=== PATIENT | female | born 1940 | race Caucasian/White ===

== ENCOUNTER 2021-10-22 14:43 | Emergency (ER) | payer MEDICARE, SELFPAY ==
[2021-10-22 15:22] VITALS: BP 140/71; PULSE 83; RESP 18; TEMP 36.7; O2SAT 97; BMI 21.8
--- NOTE | 2021-10-22 15:27 | CRLHL7_ITS ---
For Patients: As a result of the Century Cures Act, medical imaging exams and procedure reports are released immediately into your electronic medical record. You may view this report before your referring provider. If you have questions, please contact your health care provider. Indication: Left calf swelling and pain Technique: Grayscale, grayscale compression, color Doppler and spectral Doppler sonographic interrogation of the left lower extremity deep venous system was performed as per protocol. The right common femoral vein was also studied. Comparison: There are no prior studies for comparison Findings: There is thrombosis identified involving the proximal and mid gastrocnemius veins of the left calf. These are considered deep veins. The remainder of the deep venous system the left lower extremity from the common femoral vein through the major calf veins appears normal. The right common femoral vein appears normal. Impression: Deep venous thrombosis involving the proximal and mid left gastrocnemius veins. The remainder of the left lower extremity deep venous system appears normal. Dictated by Bobby Chun MD @ 10/22/2021 4:21:52 PM (Electronically Signed)
[2021-10-22 18:03] LABS: Basophils Absolute Auto 0.06 K/uL (0.00-0.30); Basophils Percent Auto 1.3 % (0.0-3.0); Eosinophils Absolute Auto 0.12 K/uL (0.00-0.50); Eosinophils Percent Auto 2.6 % (0.0-7.0); Hematocrit 39.2 % (33.0-51.0); Hemoglobin* 12.7 gm/dL (12.0-16.0); Lymphocytes Absolute Auto 1.33 K/uL (0.90-2.90); Lymphocytes Percent Auto 28.7 % (20-44); Mean Corpuscular HGB Conc 32 gm/dL (32-36); Mean Corpuscular Hemoglobin 31 pg (26-34); Mean Corpuscular Volume 96 fL (80-100); Monocytes Percent Auto 8.8 % (0.0-11.0); Neutrophils Absolute Auto 2.72 K/uL (1.7-7.0); Neutrophils Percent Auto 58.6 % (42.0-72.0); Platelet Count* 235 K/uL (140-440); RDW Coefficient of Variation % 13.6 % (11.5-15.5); Red Blood Count 4.09 m/uL (4.00-5.20); White Blood Count* 4.64 K/uL (4.50-11.00)
[2021-10-22 18:16] LABS: Slide Review Reflex No
[2021-10-22 18:18] LABS: Chloride* 102 mmol/L (96-114)
[2021-10-22 18:19] LABS: Potassium* 3.9 mmol/L (3.6-5.1); Sodium* 137 mmol/L (135-149)
[2021-10-22 18:21] LABS: Creatinine* 0.8 mg/dL (0.5-1.5); Estimated Glomerular Filt Rate 75 ml/min
[2021-10-22 18:22] LABS: Blood Urea Nitrogen* 20 mg/dL (7-30); Calcium* 8.9 mg/dL (8.4-10.6); Carbon Dioxide* 28 mmol/L (20-32); Glucose* 93 mg/dL (60-115)
[2021-10-22 18:24] LABS: INR 0.84 (0.91-1.10); Prothrombin Time 11.9 Seconds
--- NOTE | 2021-10-22 18:53 | ED.GENADULT ---
HPI - General Adult General Chief complaint: Extremity Pain/Injury, Lower Stated complaint: Calf Pain Warm to touch/Swelling Time Seen by Provider: 10/22/21 16:32 History of Present Illness HPI narrative: Pt presents with a 1 day history of pain and swelling in the left leg. Pain and swelling is in the posterior knee with mild extension distally. No difficulty with circulation or range of motion. No cough or shortness of breath. No bruising. No history of clotting disorder. No recent trauma or changes in her activity level. No long car rides. Related Data Home Medications Medication Instructions Recorded Confirmed fluticasone 100 mcg-salmeterol 50 inhalation 10/22/21 mcg/dose blistr powdr for inhalation (Wixela Inhub) Previous Rx's Medication Instructions Recorded rivaroxaban 15 mg (42)-20 mg (9) See Rx Instructions PO .COMPLEX 10/22/21 tablets in a starter pack (Xarelto #51 ea DVT-PE Treatment 30-Day Starter) Allergies Allergy/AdvReac Type Severity Reaction Status Date / Time No Known Drug Allergies Allergy Verified 10/22/21 15:22 Review of Systems Status of ROS: Reports: 10 or more systems reviewed and unremarkable except as noted in History and below [facility] Medical History Cancer Surgical History H/O mastectomy Social History Smoking Status: Never smoker Do you use any of these nicotine containing products: None Second hand tobacco smoke exposure: No How often do you have a drink containing alcohol: never How often do you have six or more drinks on one occasion: Never AUDIT-C Alcohol total score: 0 Non-prescribed substance use: denies use service: No Exam Narrative: Exam Narrative: EXAM GENERAL: Patient appears comfortable and well. EYES: No scleral icterus. THYROID: no thyroid nodules or thyromegaly. LYMPH: No supraclavicular or cervical lymphadenopathy. SKIN: Visible skin seen during exam normal or with benign process only. EXT: No dependent lower extremity pedal edema. Pain and swelling noted the posterior knee on the left no bruising or ecchymoses. HEART: Regular rate and rhythm with no murmurs, rubs, or gallops. LUNGS: Clear to auscultation bilaterally with no crackles or wheezes. ABD: Soft, non tender, non distended. PSYCH: Good eye contact, speech is not pressured. Const: Vital Signs, click to edit/add: Vital Signs - 24 hr 10/22/21 15:22 Temperature 98.1 F Pulse Rate [Right Pulse Oximeter] 83 Respiratory Rate 18 Blood Pressure [Ri ght Upper Arm] 140/71 H Pulse Oximetry 97 Oxygen Delivery Me thod Room Air Course Course Hospital Course: Ultrasound of the left leg shows DVT involving the left mid gastrocneium vein. Reevaluation(s) Reevaluation #1: Labs reassuring. Procoagulant work up pending. Xarelto 15 mg given orally. Vital Signs Vital signs: Initial Vital Signs Temperature 98.1 F 10/22/21 15:22 Temperature Source Temporal Artery Scan 10/22/21 15:22 Pulse Rate 83 10/22/21 15:22 Respiratory Rate 18 10/22/21 15:22 Blood Pressure 140/71 H 10/22/21 15:22 Blood Pressure Mean 94 10/22/21 15:22 Blood Pressure Position Sitting 10/22/21 15:22 Pulse Oximetry 97 10/22/21 15:22 Oxygen Delivery Method 10/22/21 15:22 Vital Signs Temperature 98.1 F 10/22/21 15:22 Pulse Rate 83 10/22/21 15:22 Respiratory Rate 18 10/22/21 15:22 Blood Pressure 140/71 H 10/22/21 15:22 Pulse Oximetry 97 10/22/21 15:22 Oxygen Delivery Method 10/22/21 15:22 Temperature 98.1 F 10/22/21 15:22 Pulse Rate 83 10/22/21 15:22 Respiratory Rate 18 10/22/21 15:22 Blood Pressure 140/71 H 10/22/21 15:22 Pulse Oximetry 97 10/22/21 15:22 Oxygen Delivery Method 10/22/21 15:22 Medical Decision Making MDM Narrative Medical decision making narrative: Pt presents with DVT in L leg. No history of DVT. Pt labs reassuring. Pt started on Xarelto. Procoagulant workup in process. Differential Diagnosis Differential Diagnosis: DVT, Orellana's Cyst, Bleeding, Torn muscle Lab Data Labs: Lab Results 10/22/21 10/22/21 10/22/21 Range/Units 17:52 17:52 17:52 WBC 4.64 (4.50-11.00) K/uL RBC 4.09 (4.00-5.20) m/uL Hgb 12.7 (12.0-16.0) gm/dL Hct 39.2 (33.0-51.0) % MCV 96 (80-100) fL MCH 31 (26-34) pg MCHC 32 (32-36) gm/dL RDW Coeff of Tyree 13.6 (11.5-15.5) % Plt Count 235 (140-440) K/uL Neut % (Auto) 58.6 (42.0-72.0) % Lymph % (Auto) 28.7 (20-44) % [place] % (Auto) 8.8 (0.0-11.0) % Eos % (Auto) 2.6 (0.0-7.0) % Baso % (Auto) 1.3 (0.0-3.0) % Neut # (Auto) 2.72 (1.7-7.0) K/uL Lymph # (Auto) 1.33 (0.90-2.90) K/uL [place] # (Auto) 0.40 (0.00-0.90) K/UL Eos # (Auto) 0.12 (0.00-0.50) K/uL Baso # (Auto) 0.06 (0.00-0.30) K/uL Abs Immat Gran (auto) 0.00 (0.00-0.30) K/uL INR 0.84 L (0.91-1.10) Sodium 137 (135-149) mmol/L Potassium 3.9 (3.6-5.1) mmol/L Chloride 102 (96-114) mmol/L Carbon Dioxide 28 (20-32) mmol/L BUN 20 (7-30) mg/dL Creatinine 0.8 (0.5-1.5) mg/dL Estimated Creat Clear 42.70 Estimated GFR 75 ml/min Glucose 93 (60-115) mg/dL Calcium 8.9 (8.4-10.6) mg/dL Discharge Plan Discharge Clinical Impression: DVT (deep venous thrombosis) Patient Disposition: Home, Self-Care Condition: Stable Instructions: Deep Vein Thrombosis (ED) Additional Instructions: Xarelto 15 mg twice daily for 21 days then 20 mg daily Follow up with your doctor in the next week Activity Level: No Restrictions Discharge Diet: Regular Prescriptions: New Xarelto DVT-PE Treat 30d Start 15 mg (42)- 20 mg (9) tablets,dose pack See Rx Instructions .ROUTE .COMPLEX Qty: 51 0RF Rx Instructions: take one-15 mg tablet twice daily for 21 days, then one-20 mg tablet once daily; must take with meal/food No Action fluticasone propion-salmeterol [Wixela Inhub] 100-50 mcg/dose blister with device INHALATION Follow Up/Referrals: Arlyn Blanton MD [Primary Care Provider] - Stand Alone Forms: [employer] Payment Info Instructions
[2021-10-22] MEDS: RIVAROXABAN 10 MG TABLET 15 MG PO (19:31)
[2021-10-25 23:46] LABS: Protein C Functional 117 % (83-168); Protein S Functional 79 % (57-131)
[2021-10-27 18:26] LABS: FACV Specimen Whole Blood; Factor V Leiden (F5) Mutation Negative
== END 2021-10-22 20:03 | disposition home or self-care (01) ==
PROVIDERS: Emergency Provider Internal Medicine; PCP Internal Medicine
DX: I82.402 Acute embolism and thrombosis of unspecified deep veins of left lower extremity (principal)
CPT/HCPCS: 36415; 80048; 81241; 85025; 85303; 85306; 85610; 93971; 99283; A9270

== ENCOUNTER 2022-01-06 10:18 | Emergency (ER) | payer MEDICARE, SELFPAY ==
[2022-01-06 10:40] VITALS: BP 117/75; PULSE 95; RESP 18; TEMP 36.9; O2SAT 97; BMI 21.8
--- NOTE | 2022-01-06 11:10 | CRLHL7_ITS ---
For Patients: As a result of the Century Cures Act, medical imaging exams and procedure reports are released immediately into your electronic medical record. You may view this report before your referring provider. If you have questions, please contact your health care provider. INDICATION: Calf pain COMPARISON: None. TECHNIQUE: A compression venous ultrasound exam was performed of the left lower extremity using duran-scale imaging, color Doppler and spectral Doppler analysis. FINDINGS: Sonographic imaging of the left lower extremity demonstrates normal compressibility and color Doppler venous blood flow within the common femoral vein, deep femoral vein, and the proximal greater saphenous vein. Within the thigh, the femoral vein is patent and compressible. At a lower level, the popliteal and posterior tibial veins also show normal compressibility and color Doppler venous blood flow. One of the paired peroneal veins demonstrates absent Doppler flow with hypoechoic clot and noncompressibility. Limited imaging of the contralateral groin demonstrates a normal spectral waveform and color Doppler venous blood flow within the right common femoral vein. IMPRESSION: Positive exam for DVT within the right mid calf involving 1 of the paired peroneal veins. Called to Dr. Ashby 1:04 p.m. 01/06/2022. Dictated by Jeovany Leon MD @ 01/06/2022 1:04:35 PM (Electronically Signed)
--- NOTE | 2022-01-06 11:32 | ED.GENADULT ---
HPI - General Adult General Time Seen by Provider: 11:32 Date Seen: 01/06/22 Chief complaint: Extremity Pain/Injury, Lower Stated complaint: Blood clot right calf Time Seen by Provider: 01/06/22 11:32 Source: patient, RN notes reviewed and old records reviewed Mode of arrival: ambulatory Limitations: no limitations History of Present Illness HPI narrative: Caroline is a very pleasant 81-year-old female with a history of unprovoked left lower extremity DVT in mid October 2021 who comes to the emergency room with right calf tenderness. Patient states that she had been placed on Xarelto after being diagnosed with a blood clot in her left leg. She really had no reason to have this occur. Since that time she has gone off and on the medication. At this time she has not taken the medication for 5 days because she had an episode of nausea and shakiness and felt very cold after dinner while taking the tablet. She is unsure of other dates in which she did not take the medication at this point. On ThursdayJanuary 04 patient had the onset of right calf tenderness. She is here today because she is worried about a blood clot. She denies fever or chills. She does note that she was treated with monoclonal antibodies for COVID 3 weeks ago in [place]. She has no known clotting disorders and she was not worked up for any clotting disorders after the previous blood clot. Patient denies shortness of breath which or chest pain or shortness of breath with exertion. She denies any rapid heart rate. Related Data Home Medications Medication Instructions Recorded Confirmed fluticasone 100 mcg-salmeterol 50 1 inh inhalation DAILY 10/22/21 01/06/22 mcg/dose blistr powdr for inhalation (Wixela Inhub) Previous Rx's Medication Instructions Recorded rivaroxaban 15 mg (42)-20 mg (9) See Rx Instructions PO .COMPLEX 10/22/21 tablets in a starter pack (Xarelto #51 ea DVT-PE Treatment 30-Day Starter) ondansetron HCl 4 mg tablet 4 mg PO TID PRN nausea and 01/06/22 vomiting #10 tabs rivaroxaban 15 mg tablet (Xarelto) 15 mg PO BID 21 days #42 tabs 01/06/22 Allergies Allergy/AdvReac Type Severity Reaction Status Date / Time No Known Drug Allergies Allergy Verified 01/06/22 10:45 Review of Systems Status of ROS: Reports: 10 or more systems reviewed and unremarkable except as noted in History and below Narrative: COVID 3 weeks ago treated with monoclonal antibodies Const: Denies: fever or chills Eyes: Denies: change in vision ENMT: Denies: throat pain or neck pain Cardio: Reports: swelling of feet/ankles (On the right); Denies: chest pain, palpitations, lightheadedness or shortness of breath with exertion Resp: Denies: shortness of breath or cough GI: Denies: abdominal pain or diarrhea : Denies: painful urination Musculo: Denies: neck pain Neuro: Denies: numbness in extremities or weakness in extremities PFSH PFSH Medical History Cancer Surgical History H/O mastectomy Social History Smoking Status: Never smoker Do you use any of these nicotine containing products: None Second hand tobacco smoke exposure: No How often do you have a drink containing alcohol: never How often do you have six or more drinks on one occasion: Never AUDIT-C Alcohol total score: 0 Non-prescribed substance use: denies use service: No Exam Narrative: Exam Narrative: Caroline is alert and oriented. Very pleasant well-spoken woman in no acute distress. Eyes are clear. Oral cavity with moist mucous membranes. Neck is supple. Heart with regular rate and rhythm. No murmurs or rubs are noted. Lungs are clear in all lung martin. Abdomen is soft nontender. Lower extremities show increased size of the right lower calf compared to the left. No tenderness with palpation over the calf but positive Homans sign is noted. Pedal pulses are symmetrical and intact. Const: Vital Signs, click to edit/add: Vital Signs - 24 hr 01/06/22 10:40 Temperature 98.4 F Pulse Rate [Right Pulse Oximeter] 95 Respiratory Rate 18 Blood Pressure [Ri ght Upper Arm] 117/75 Pulse Oximetry 97 Oxygen Delivery Me thod Room Air Course Course Hospital Course: Patient immediately went to ultrasound and she does have a right calf peroneal occlusive thrombus. Consultations Consultation #1: I did attempt to speak to hematology/oncology but they were unavailable today. I spoke with lab about the possibility of a missed for factor 5 in related coagulation tests but we do not have a specific panel. I tested today for factor 5 only. Vital Signs Vital signs: Initial Vital Signs Temperature 98.4 F 01/06/22 10:40 Temperature Source Temporal Artery Scan 01/06/22 10:40 Pulse Rate 95 01/06/22 10:40 Respiratory Rate 18 01/06/22 10:40 Blood Pressure 117/75 01/06/22 10:40 Blood Pressure Mean 89 01/06/22 10:40 Blood Pressure Position Sitting 01/06/22 10:40 Pulse Oximetry 97 01/06/22 10:40 Oxygen Delivery Method 01/06/22 10:40 Vital Signs Temperature 98.4 F 01/06/22 10:40 Pulse Rate 95 01/06/22 10:40 Respiratory Rate 18 01/06/22 10:40 Blood Pressure 117/75 01/06/22 10:40 Pulse Oximetry 97 01/06/22 10:40 Oxygen Delivery Method 01/06/22 10:40 Temperature 98.4 F 01/06/22 10:40 Pulse Rate 95 01/06/22 10:40 Respiratory Rate 18 01/06/22 10:40 Blood Pressure 117/75 01/06/22 10:40 Pulse Oximetry 97 01/06/22 10:40 Oxygen Delivery Method 01/06/22 10:40 Medical Decision Making MDM Narrative Medical decision making narrative: 1. Acute right calf DVT-this is not extend past the knee. Patient does not have shortness of breath, tachycardia, hypoxia to indicate any sort of pulmonary embolism type picture. This most likely stems from a combination of starting/stopping her Xarelto as well as recent infection with COVID which is known to be a pro clotting virus. It has been greater than 5 days since patient has been on her Xarelto and therefore will start on her on a starter pack 15 mg p.o. b.i.d. times 21 days. This was sent to her pharmacy [facility]. She states that in the past she has had some nausea and I have also included Zofran 4 mg ODT p.o. t.i.d. p.r.n. 10. Tablets. Would recommend monitoring stool for any blood and reporting that to her primary MD if it should occur. Dr. Arlyn Blanton of the [facility] is her primary MD. 2. Disposition-patient is discharged home and will restart her Xarelto. I have learned from past records that patient does have a history of breast cancer in 2008. She also has COPD. Would recommend hematology consult, possible recheck as underlying cancer may also be implicated in the spontaneous DVTs that patient has had. Patient is recommended to return to the emergency room with difficulty breathing, blood in stool, vomiting and as needed. Medical Records Medical records reviewed: Yes I reviewed the patient's medical records Lab Data Lab results narrative: Factor 5 test pending Discharge Plan Discharge Clinical Impression: Acute deep vein thrombosis (DVT) of calf muscle vein of right lower extremity Patient Disposition: Home, Self-Care Condition: Unchanged Instructions: Deep Vein Thrombosis Prevention (ED) Additional Instructions: Restart Xarelto today. Continue on Xarelto. Take with food. Zofran is an anti nausea medication and I will also call this in for you if you experience nausea. Discontinue Xarelto if you see blood in your stool. Contact your primary MD for recheck. Follow-up with Dr. Blanton in [place] as scheduled on January 13. Please have her check results of the factor 5 test. She may also want to refer you to hematology for further workup. Return to the emergency room for shortness of breath, chest pain, worsening symptoms and as needed. Prescriptions: New Xarelto 15 mg tablet 15 mg PO BID 21 Days Qty: 42 2RF ondansetron HCl 4 mg tablet 4 mg PO TID PRN (Reason: nausea and vomiting) Qty: 10 0RF No Action fluticasone propion-salmeterol [Wixela Inhub] 100-50 mcg/dose blister with device 1 inh INHALATION DAILY Xarelto DVT-PE Treat 30d Start 15 mg (42)- 20 mg (9) tablets,dose pack See Rx Instructions .ROUTE .COMPLEX Qty: 51 0RF Hold Instructions: feeling nauseated and thought medication caused Rx Instructions: take one-15 mg tablet twice daily for 21 days, then one-20 mg tablet once daily; must take with meal/food Follow Up/Referrals: Arlyn Blanton MD [Primary Care Provider] - Stand Alone Forms: [employer] Info Instructions
[2022-01-27 23:46] LABS: FACV Specimen Whole Blood; Factor V Leiden (F5) Mutation Negative
== END 2022-01-06 13:34 | disposition home or self-care (01) ==
PROVIDERS: Emergency Provider Family Medicine; PCP Internal Medicine
DX: I82.461 Acute embolism and thrombosis of right calf muscular vein (principal); R93.7 Abnormal findings on diagnostic imaging of other parts of musculoskeletal system; Z13.79 Encounter for other screening for genetic and chromosomal anomalies
CPT/HCPCS: 36415; 81241; 93971; 99284

== ENCOUNTER 2022-05-17 01:54 | Emergency (ER) | payer MEDICARE, SELFPAY ==
[2022-05-17 02:12] VITALS: BP 118/63; PULSE 88; RESP 18; TEMP 37; O2SAT 98; BMI 21.0
--- NOTE | 2022-05-17 02:22 | CRLHL7_ITS ---
For Patients: As a result of the Century Cures Act, medical imaging exams and procedure reports are released immediately into your electronic medical record. You may view this report before your referring provider. If you have questions, please contact your health care provider. INDICATION: Left calf pain and swelling TECHNIQUE: Ultrasound venous duplex left lower extremity. Real-time duran-scale (B mode 2D), color Doppler, and spectral Doppler imaging were performed with compression and augmentation. COMPARISON: None FINDINGS: Deep veins: The left common femoral, femoral, popliteal, and visualized calf veins are fully compressible, demonstrate normal color flow, and normal response to mechanical augmentation. The Duplex Doppler waveforms are normal in appearance. Superficial veins: The visualized greater saphenous and superficial veins of the leg and calf are unremarkable. Soft tissue: No masses or cysts are identified. No adenopathy is seen. IMPRESSION: 1. No sonographic evidence of acute deep venous thrombosis seen. Dictated by: Abel Smart MD @ 05/17/2022 03:35:49 (Electronically Signed)
--- NOTE | 2022-05-17 02:23 | ED.GENADULT ---
HPI - General Adult General Chief complaint: Extremity Pain/Injury, Lower Stated complaint: Left Leg Pain Time Seen by Provider: 05/17/22 01:57 History of Present Illness HPI narrative: Patient is an 82-year-old woman who has history of at least 2 previous DVTs who presents with approximately 12 hours of swelling in the left lower extremity. She has been off of Xarelto for several weeks due to anemia. Patient had an EGD done earlier this week in [place] which showed a healed ulcer with no bleeding. Patient has no history of shortness of breath no chest pain no orthopnea no PND a known ecchymoses. The swelling is confined to the left calf. She has had no numbness no tingling no weakness no skin breakdown no erythema. Otherwise she has been in good health with no major concerns. Related Data Home Medications Medication Instructions Recorded Confirmed fluticasone 100 mcg-salmeterol 50 1 inh inhalation DAILY 10/22/21 05/17/22 mcg/dose blistr powdr for inhalation (Wixela Inhub) Previous Rx's Medication Instructions Recorded rivaroxaban 15 mg (42)-20 mg (9) See Rx Instructions PO .COMPLEX 10/22/21 tablets in a starter pack (Xarelto #51 ea DVT-PE Treatment 30-Day Starter) ondansetron HCl 4 mg tablet 4 mg PO TID PRN nausea and 01/06/22 vomiting #10 tabs rivaroxaban 15 mg tablet (Xarelto) 15 mg PO BID 21 days #42 tabs 01/06/22 Allergies Allergy/AdvReac Type Severity Reaction Status Date / Time No Known Drug Allergies Allergy Verified 01/06/22 10:45 Review of Systems Status of ROS: Reports: 10 or more systems reviewed and unremarkable except as noted in History and below [facility] Medical History Cancer ?C80.1 - Malignant (primary) neoplasm, unspecified (ICD-10) Surgical History H/O mastectomy ?Z90.10 - Acquired absence of unspecified breast and nipple (ICD-10) Social History Smoking Status: Former smoker Do you use any of these nicotine containing products: None Second hand tobacco smoke exposure: No How often do you have a drink containing alcohol: never How often do you have six or more drinks on one occasion: Never AUDIT-C Alcohol total score: 0 Non-prescribed substance use: denies use service: No Exam Narrative: Exam Narrative: EXAM GENERAL: Patient appears comfortable and well. EYES: No scleral icterus. LYMPH: No supraclavicular or cervical lymphadenopathy. SKIN: Visible skin seen during exam normal or with benign process only. EXT: No dependent lower extremity pedal edema. Minimal swelling without ecchymosis or erythema noted on the left calf. No other significant findings. HEART: Regular rate and rhythm with no murmurs, rubs, or gallops. LUNGS: Clear to auscultation bilaterally with no crackles or wheezes. ABD: Soft, non tender, non distended. PSYCH: Good eye contact, speech is not pressured. Const: Vital Signs, click to edit/add: Vital Signs - 24 hr 05/17/22 02:12 Temperature 98.6 F Pulse Rate [Pulse Oximeter] 88 Respiratory Rate 18 Blood Pressure [Le ft Upper Arm] 118/63 Pulse Oximetry 98 Oxygen Delivery Me thod Room Air Course Course Hospital Course: Patient seen examined vital signs are stable. Duplex of the left lower extremity ordered. Vital Signs Vital signs: Initial Vital Signs Temperature 98.6 F 05/17/22 02:12 Temperature Source Temporal Artery Scan 05/17/22 02:12 Pulse Rate 88 05/17/22 02:12 Respiratory Rate 18 05/17/22 02:12 Blood Pressure 118/63 05/17/22 02:12 Blood Pressure Mean 81 05/17/22 02:12 Pulse Oximetry 98 05/17/22 02:12 Oxygen Delivery Method Room Air 05/17/22 02:12 Vital Signs Temperature 98.6 F 05/17/22 02:12 Pulse Rate 88 05/17/22 02:12 Respiratory Rate 18 05/17/22 02:12 Blood Pressure 118/63 05/17/22 02:12 Pulse Oximetry 98 05/17/22 02:12 Oxygen Delivery Method Room Air 05/17/22 02:12 Temperature 98.6 F 05/17/22 02:12 Pulse Rate 88 05/17/22 02:12 Respiratory Rate 18 05/17/22 02:12 Blood Pressure 118/63 05/17/22 02:12 Pulse Oximetry 98 05/17/22 02:12 Oxygen Delivery Method Room Air 05/17/22 02:12 Medical Decision Making MDM Narrative Medical decision making narrative: Patient with history of DVT presents with swollen left leg. Duplex of left lower extremity is negative for DVT. Patient has no other symptoms. Reassurance is offered and patient will follow-up with her primary physician as needed. She will continue her current medications as prescribed. Differential Diagnosis Differential Diagnosis: DVT cellulitis venous insufficiency normal finding Discharge Plan Discharge Clinical Impression: Edema Patient Disposition: Home, Self-Care Condition: Stable Instructions: Leg Edema (ED) Additional Instructions: No change to treatment plan Continue current medications Up with your doctor as scheduled. Activity Level: No Restrictions Discharge Diet: Regular Prescriptions: No Action fluticasone propion-salmeterol [Wixela Inhub] 100-50 mcg/dose blister with device 1 inh INHALATION DAILY Xarelto DVT-PE Treat 30d Start 15 mg (42)- 20 mg (9) tablets,dose pack See Rx Instructions .ROUTE .COMPLEX Qty: 51 0RF Hold Instructions: feeling nauseated and thought medication caused Rx Instructions: take one-15 mg tablet twice daily for 21 days, then one-20 mg tablet once daily; must take with meal/food Xarelto 15 mg tablet 15 mg PO BID 21 Days Qty: 42 2RF Hold Instructions: Doctor's Order ondansetron HCl 4 mg tablet 4 mg PO TID PRN (Reason: nausea and vomiting) Qty: 10 0RF Follow Up/Referrals: Arlyn Blanton MD [Primary Care Provider] - Stand Alone Forms: [employer] Info Instructions
--- OUTSIDE RECORDS SUMMARY | 2022-05-17 03:30 | XMS_ITS | Continuity of Care Document ---
Author Name Unknown Organization [facility] Address [address] [phone] Phone Care Team Providers Care Political Aide Name Role Phone Link Cristofer HEARN Unavailable Unavailable Allergies, Adverse Reactions, Alerts Substance Reaction Status Criticality No Known allergies Medications Medication Instructions Dosage Effective Dates (start - stop) Status Comments MiralaxBisacodylMagCit Colon Prep Use as directed - Active VITAMIN C (unknown strength) Take one tablet by mouth daily Not Available - Active CALCIUM 100 MGCAPSULE Take one tablet by mouth daily - Active Surbex/C Tab Take one tablet by mouth daily - Active flaxseed oil 1,000 mg Cap Use as directed - Active Fish Oil 500 mg Cap, Delayed Release Take one tablet by mouth daily - Active multivitamin Cap Take 1 tablet by mouth daily - Active [id number] Use as directed - Active Aleve 220 mg Tab as needed - Active Procedures Procedure Date Colorectal Ca Screen Hi Risk I 08 Advance Directives Directive Yes / No Effective Date File Name No Information Encounters Encounter Description Practice Location Reason(s) For Visit Diagnoses Date Provider Providers Copied on Encounter [facility], [address] [address], [place], [place], [id number], [place] tel:[phone] [facility] No Information [address] Clive [place]. [address], [place], [place], [id number] , [place]. [phone] [facility], [address] [address], [place], [place], [id number], [place] tel:[phone] [facility] No Information 201 [address] Clive [place]. [address], [facility] [address], [place], [place], [id number] , [place]. tel: [phone] [facility], [address] [address], [place], [id number], [place] tel:[phone] [facility] Colon Cancer ScreeningFamily Hx GI Tract CancerDiverticulo sis Of Colon Apr-0 8 Enrike Morgan. [address], [facility] [address], [place], [id number] , [place]. tel: [phone] Referring Provider: Lucinda Lemus MD [facility], [address], [address]. tel:[phone] Family History Family Member Type Diagnosis Age At Onset No Information Payers Payer name Insurance type Covered alliance party ID Authoriza tion(s) [employer] CI [id number] Social History Type Description Quantity Date Captured Comments Sex Female Smoking Status No Information Chief Complaint And Reason For Visit No Information Reason For Referral Reason For Referral No Information Plan Of Treatment Date Type Action Status No Information History Of Present Illness Encounter Date Complaint History Of Prese nt Illness No Information Functional Status Date Functional Assessmen t No Information Instructions Date Instruction Additional Infor mation No Information Assessments Type Assessment Date No Information Patient Care Teams Name Effective Dates (start - stop) Status Members No Information
== END 2022-05-17 03:43 | disposition home or self-care (01) ==
LOC: ED 03:29
PROVIDERS: Emergency Provider Internal Medicine; PCP Internal Medicine
DX: R60.9 Edema, unspecified (principal)
CPT/HCPCS: 93971; 99283

== ENCOUNTER 2022-11-07 16:46 | Emergency (ER) | payer MEDICARE, SELFPAY ==
[2022-11-07] VITALS (30 sets, daily range): BP systolic 151–174; BP diastolic 74–93; PULSE 83–115; RESP 18; TEMP 36.2; O2SAT 86–98; BMI 19.7
--- NOTE | 2022-11-07 17:32 | ED.GENADULT ---
HPI - General Adult General Time Seen by Provider: 17:32 Date Seen: 11/07/22 Chief complaint: Abdominal Pain Stated complaint: Stomach issues, rash Time Seen by Provider: 11/07/22 17:23 History of Present Illness HPI narrative: This is an 82-year-old female who has a past medical history including multiple previous DVTs, history of breast cancer status post mastectomy, also recent fairly diffuse urticaria rash of unclear etiology (possibly a drug reaction or possibly a contact dermatitis) who presents to the ER today primarily for evaluation of acute onset of nausea, vomiting, abdominal pain that began this afternoon. She has had trouble with a rash since July. She had tried stopping Eliquis and is now on naturopathic blood thinners instead. It did not improve her rash. She was put on a steroid cream last week at the Urgent Care and had noted some improvement in the rash but in the past 3 days she has had recurrence of the rash, in particular a urticarial stripe of hives on her lower torso, essentially circular around her mid wrist. No other new symptoms of the rash. No swelling in her mouth. No trouble breathing. No fever. This afternoon she was feeling normally this morning. She did only have a very small lunch. She took her afternoon medications including several vitamins and supplements. She went for a walk. While walking she began to feel unwell. She developed abdominal pain. She was nauseous. She had to go home. She had vomiting with 6 or 7 episodes of nonbloody emesis. Bowel movements have been normal. Her abdominal pain has been progressively worsening. It is now affecting her entire upper abdomen and the right lower quadrant. She has as just feels somewhat bloated and stretched out. No fever. No urinary symptoms. No change in her rash today. No known trauma. She has no previous abdominal surgeries. Related Data Home Medications Medication Instructions Recorded Confirmed fluticasone 100 mcg-salmeterol 50 1 inh inhalation DAILY 10/22/21 11/07/22 mcg/dose blistr powdr for inhalation (Kota Cheek) Previous Rx's Medication Instructions Recorded omeprazole 20 mg capsule,delayed 20 mg PO DAILY #30 caps 06/21/22 release triamcinolone acetonide 0.1 % 1 applic topical BID #453.6 grams 11/02/22 topical cream Allergies Allergy/AdvReac Type Severity Reaction Status Date / Time No Known Drug Allergies Allergy Verified 07/18/22 09:48 [facility] Medical History (Updated 11/07/22 @ 20:55 by David Lemus MD) Contact dermatitis ?L25.9 - Unspecified contact dermatitis, unspecified cause (ICD-10) Cancer ?C80.1 - Malignant (primary) neoplasm, unspecified (ICD-10) Surgical History H/O mastectomy ?Z90.10 - Acquired absence of unspecified breast and nipple (ICD-10) Social History Smoking Status: Former smoker Do you use any of these nicotine containing products: None Second hand tobacco smoke exposure: No How often do you have a drink containing alcohol: never How often do you have six or more drinks on one occasion: Never AUDIT-C Alcohol total score: 0 Non-prescribed substance use: denies use service: No Exam Narrative: Exam Narrative: Constitutional: Appears well-developed and well-nourished. Alert. Conversant. Non toxic. HENT: Head: Atraumatic. Nose: Nose normal. Mouth/Throat: Oral mucosa is clear and moist. no trismus. Pharynx normal. Tonsils symmetric. No tonsillar enlargement, erythema, or exudate. Eyes: Conjunctivae normal. EOM normal. Pupils equal, round, and reactive to light. No scleral icterus. Neck: Normal range of motion. Neck supple. No tracheal deviation present. Cardiovascular: Normal rate, regular rhythm. No gallop. No friction rub. No murmur heard. Symmetric radial artery pulses Pulmonary/Chest: Effort normal. No stridor. No respiratory distress. No wheezes. No rales. No rhonchi . Abdominal: Soft. Bowel sounds normal. No distension. No mass. Right lower quadrant> right upper quadrant tenderness. Minimal epigastric and periumbilical tenderness. No CVA tenderness. No rebound. No guarding. Musculoskeletal: RUE: Normal range of motion. No tenderness. No deformity LUE: Normal range of motion. No tenderness. No deformity RLE: Normal range of motion. No edema. No tenderness. No deformity LLE: Normal range of motion. No edema. No tenderness. No deformity Lymph: No cervical adenopathy. Neurological: Alert and oriented to person, place, and time. Normal strength. CN II-VII intact. No sensory deficit. GCS eye subscore is 4. GCS verbal subscore is 5. GCS motor subscore is 6. Normal coordination Skin: Patient has an erythematous irregularly shaped macular rash in multiple locations on her body. Primarily there is a rash fairly widespread on her lower quadrants of her abdomen and her posterior low back, almost in a circular pattern around her lower torso/mid wrist. It is erythematous. Minimally raise. There is no bullae, vesicles, pustules, petechiae, vesicles, pustules. Skin is warm and dry. The rash appears simply many confluent macules, possibly a large area of hives. No pallor. Normal capillary refill. Psychiatric: Normal mood. Normal affect. Const: Vital Signs, click to edit/add: Vital Signs - 24 hr 11/07/22 16:56 11/07/22 18:30 11/07/22 18:36 Temperature 97.2 F L Pulse Rate 105 H Pulse Rate [Right Pulse Oximeter] 83 Respiratory Rate 18 Blood Pressure Blood Pressure [Ri ght Upper Arm] 151/74 H Pulse Oximetry 98 92 89 Oxygen Delivery Me thod Nasal Cannula Oxygen Flow Rate 11/07/22 18:57 11/07/22 18:58 11/07/22 19:00 Temperature Pulse Rate 107 H 107 H 104 H Pulse Rate [Right Pulse Oximeter] Respiratory Rate Blood Pressure 174/88 H Blood Pressure [Ri ght Upper Arm] Pulse Oximetry 91 88 89 Oxygen Delivery Me thod Oxygen Flow Rate 11/07/22 19:02 11/07/22 19:03 11/07/22 19:15 Temperature Pulse Rate 107 H Pulse Rate [Right Pulse Oximeter] Respiratory Rate Blood Pressure 173/79 H Blood Pressure [Ri ght Upper Arm] Pulse Oximetry 92 86 L Oxygen Delivery Me thod Nasal Cannula Oxygen Flow Rate 2 11/07/22 19:15 11/07/22 19:30 11/07/22 19:45 Temperature Pulse Rate 107 H 107 H 113 H Pulse Rate [Right Pulse Oximeter] Respiratory Rate Blood Pressure Blood Pressure [Ri ght Upper Arm] Pulse Oximetry 86 L 91 91 Oxygen Delivery Me thod Nasal Cannula Nasal Cannula Nasal Cannula Oxygen Flow Rate 2 2 2 11/07/22 20:00 11/07/22 20:01 Temperature Pulse Rate 114 H 114 H Pulse Rate [Right Pulse Oximeter] Respiratory Rate Blood Pressure 167/90 H Blood Pressure [Ri ght Upper Arm] Pulse Oximetry 90 91 Oxygen Delivery Me thod Nasal Cannula Nasal Cannula Oxygen Flow Rate 2 2 Course Course ED Course: Recheck-how much pain relief after 2 doses of fentanyl. Dilaudid ordered. Reevaluation(s) Reevaluation #1: Recheck-after Dilaudid patient more drowsy. No desatted down to the high 80s. Put on 1 L nasal cannula and sats came up to 90s. Reevaluation #2: Recheck 8:30 p.m.-patient updated about her test findings. Consult placed for Hematology at [facility]. Updated patient's daughter by phone. Vital Signs Vital signs: Initial Vital Signs Temperature 97.2 F L 11/07/22 16:56 Temperature Source Temporal Artery Scan 11/07/22 16:56 Pulse Rate 83 11/07/22 16:56 Respiratory Rate 18 11/07/22 16:56 Blood Pressure 151/74 H 11/07/22 16:56 Blood Pressure Mean 99 11/07/22 16:56 Blood Pressure Position Sitting 11/07/22 16:56 Pulse Oximetry 98 11/07/22 16:56 Oxygen Delivery Method Nasal Cannula 11/07/22 16:56 Vital Signs Temperature 97.2 F L 11/07/22 16:56 Pulse Rate 83 11/07/22 16:56 Respiratory Rate 18 11/07/22 16:56 Blood Pressure 151/74 H 11/07/22 16:56 Pulse Oximetry 98 11/07/22 16:56 Oxygen Delivery Method Nasal Cannula 11/07/22 16:56 Temperature 97.2 F L 11/07/22 16:56 Pulse Rate 114 H 11/07/22 20:01 Respiratory Rate 18 11/07/22 16:56 Blood Pressure 167/90 H 11/07/22 20:01 Pulse Oximetry 91 11/07/22 20:01 Oxygen Delivery Method Nasal Cannula 11/07/22 20:01 Oxygen Flow Rate 2 11/07/22 20:01 Medical Decision Making MDM Narrative Medical decision making narrative: This is a pleasant 82-year-old female with a history previous DVTs (now off anticoagulation after she stopped her Eliquis a couple of months ago due to rash) who presents to the ER today for abdominal pain. Initial differential is broad including appendicitis, colitis, diverticulitis, bowel obstruction, perforation, abscess, ischemia, AAA, urinary pathology, cholecystitis, gastritis, functional abdominal pain, among others. Laboratory workup shows reassuring white blood cell count. Differential shows 12% lymphocytes and 4% eosinophils. She is mildly anemic with a hemoglobin 11.7 but no evidence for active bleeding. Lactic acid normal at 1.2. CT scan shows evidence for multifocal splenic infarcts. Unclear etiology but suspicion is for possibly venous occlusion due to untreated thromboembolic disease. Discussed with hematology[] CT scan also shows evidence for colitis involving her transverse and descending colon with a small segment of sigmoid colon. Unclear etiology. She has not had any recent diarrhea. This pattern would not really follow a typical arterial distribution to suggest acute occlusive arterial ischemia. Lactic acid is normal. Consider possible venous occlusion causing colitis. At this point no evidence for any clear perforation or surgical emergency. Sodium slightly low at 133. Otherwise basic metabolic profile reassuring. Kidney function normal. LFTs are abnormal with AST 56, ALT 37, and alk-phos 744. She does has signs of abnormalities within her liver, possibly fatty liver disease on her CT scan. However, compared to labs from July, previous LFTs were normal and now are abnormal. Unclear etiology. Total bilirubin normal. Gallbladder looks normal on CT. Biliary tract looked normal on CT. May need further workup while inpatient with gallbladder ultrasound or MRCP, if recommended by GI. Lipase normal. CT scan of her abdomen pelvis shows so abnormal lung findings in her lower lung martin however she was not having any cough or shortness of breath recently. Unclear significance. She was not having any hypoxia until she received 2 dose of fentanyl 25 mcg and then a dose of Dilaudid 0.5 mg which caused hypoxia, likely due to opiates. Discussed with Hematology, Dr. Crawley, through [facility]. She agrees the plan to start on unfractionated heparin bolus and drip here in the ER. This was initiated. We will put the patient on the [facility] a wait list. We anticipate that she will [facility] she can be seen by Hematology, GI, and other specialists as needed for further workup. Discuss with my oncoming partner, Dr. Leon . She will monitor the patient's condition here in the ER until transfer can be arranged. Lab Data Labs: Lab Results 11/07/22 11/07/2211/07/23 Range/Units 18:10 20:28 20:40 WBC 10.80 (4.50-11.00) K/uL RBC 3.84 L (4.00-5.20) m/uL Hgb 11.7 L (12.0-16.0) gm/dL Hct 35.9 (33.0-51.0) % MCV 94 (80-100) fL MCH 31 (26-34) pg MCHC 33 (32-36) gm/dL RDW Coeff of Tyree 13.1 (11.5-15.5) % Plt Count 295 (140-440) K/uL Neut % (Auto) 64.0 (42.0-72.0) % Lymph % (Auto) 12.6 L (20-44) % [place] % (Auto) 9.1 (0.0-11.0) % Eos % (Auto) 12.7 H (0.0-7.0) % Baso % (Auto) 0.8 (0.0-3.0) % Neut # (Auto) 6.91 (1.7-7.0) K/uL Lymph # (Auto) 1.40 (0.90-2.90) K/uL [place] # (Auto) 1.00 H (0.00-0.90) K/UL Eos # (Auto) 1.40 H (0.00-0.50) K/uL Baso # (Auto) 0.09 (0.00-0.30) K/uL Abs Immat Gran (auto) 0.09 (0.00-0.30) K/uL Imm/Tot Granulo (auto) 0.8 % INR 1.02 (0.91-1.10) APTT 31 (23-33) Seconds Sodium 133 L (135-149) mmol/L Potassium 3.8 (3.6-5.1) mmol/L Chloride 96 (96-114) mmol/L Carbon Dioxide 25 (20-32) mmol/L Anion Gap 12 (7-15) mEq/L BUN 15 (7-30) mg/dL Creatinine 0.7 (0.5-1.5) mg/dL Estimated Creat Clear 39.20 Estimated GFR 87 ml/min Glucose 120 H (60-115) mg/dL Lactate 1.2 (0.5-1.9) mmol/L Calcium 9.0 (8.4-10.6) mg/dL Total Bilirubin 0.6 (0.1-1.5) mg/dL AST 56 H (12-35) U/L ALT 37 H (4-35) U/L Alkaline Phosphatase 744 H (40-150) U/L Total Protein 9.0 H (6.0-8.3) g/dL Albumin 3.6 (3.3-5.0) g/dL Lipase 141 (23-300) U/L SARS-CoV-2 (PCR) Negative SARS-CoV-2 (Negative) Influenza Type A (PCR) Negative PCR FLU A (Negative) Influenza Type B (PCR) Negative PCR FLU B (Negative) RSV (PCR) Negative PCR RSV (Negative) Imaging Data CT scan - abdomen: Attestation: I have reviewed the pertinent imaging results. Radiologist's impression: IMPRESSION: 1. Abnormal lung base findings probably related to pulmonary interstitial edema. 2. Heterogeneous nodular infiltrative pattern of the liver. This is most commonly due to fatty infiltration. Follow-up evaluation recommended in the nonacute care setting. No biliary ductal dilation. The gallbladder appears normal. 3. Multiple perfusion defects in the spleen consistent with a multifocal acute or subacute splenic infarct. No subcapsular or perisplenic collection. 4. Colitis pattern involving the transverse colon, descending colon and a portion of the sigmoid. 5. Other nonacute appearing findings as above Discharge Plan Discharge Clinical Impression: Abnormal LFTs (liver function tests), Colitis, Hypoxia, Splenic infarct, Rash Patient Disposition: Xfer Other Prescriptions: No Action triamcinolone acetonide 0.1 % cream 1 applic topical BID Qty: 453.6 0RF Rx Instructions: apply to back, arms, lower legs BID for the next 7 days fluticasone propion-salmeterol [Wixela Inhub] 100-50 mcg/dose blister with device 1 inh INHALATION DAILY omeprazole 20 mg capsule,delayed release(DR/EC) 20 mg PO DAILY Qty: 30 2RF Hold Instructions: Patient hasn't been taking Stand Alone Forms: [employer] Info Instructions
--- NOTE | 2022-11-07 17:52 | CRLHL7_ITS ---
For Patients: As a result of the Century Cures Act, medical imaging exams and procedure reports are released immediately into your electronic medical record. You may view this report before your referring provider. If you have questions, please contact your health care provider. INDICATION: Right lower quadrant abdominal pain and vomiting. COMPARISON: There are no prior studies for comparison TECHNIQUE: CT examination of the abdomen and pelvis was performed following the uneventful intravenous administration of 59 cc of Isovue 370. Thin section axial images were obtained from the lung bases through the pubic symphysis. Oral contrast was not administered. Please note that all CT scans at this facility use dose modulation, iterative reconstruction, and/or weight-based dosing when appropriate to reduce radiation dose to as low as reasonably achievable. FINDINGS: LUNG BASES: Heart size is normal at the lung bases. Small hiatal hernia. Smooth thickening of the interlobular septa at the lung bases. The most common cause of this appearance is interstitial edema.No pleural effusion identified LIVER/BILIARY SYSTEM:Heterogeneous pattern probably due to fatty infiltration. This is somewhat nodular and other infiltrative process is possible. No biliary ductal dilation. The gallbladder is unremarkable. ADRENALS: Normal KIDNEYS, URETERS and BLADDER:The kidneys appear normal. No visible mass, calculus or hydronephrosis. The ureters and bladder as visualized appear normal. SPLEEN:Multiple perfusion defects in the spleen consistent with a multifocal acute or subacute splenic infarct. This does not appear to be traumatic and there is no subcapsular or perisplenic fluid collection PANCREAS: Appears normal. RETROPERITONEUM and MESENTERY: There is no mass, adenopathy or aortic aneurysm. Atherosclerotic vascular calcification GASTROINTESTINAL SYSTEM: Wall thickening and inflammatory change involving the colon. This mainly involves the transverse colon and the descending colon and portions of the sigmoid. This is consistent with colitis. The cecum and ascending colon are relatively spared. The cecum is mobile and medially located but there is no evidence of cecal volvulus. PELVIS: No mass, adenopathy or free fluid. OSSEOUS STRUCTURES and ABDOMINAL WALL: There is an age-appropriate appearance of the osseous structures.No significant abdominal wall defect. OTHER: No free fluid or free air. IMPRESSION: 1. Abnormal lung base findings probably related to pulmonary interstitial edema. 2. Heterogeneous nodular infiltrative pattern of the liver. This is most commonly due to fatty infiltration. Follow-up evaluation recommended in the nonacute care setting. No biliary ductal dilation. The gallbladder appears normal. 3. Multiple perfusion defects in the spleen consistent with a multifocal acute or subacute splenic infarct. No subcapsular or perisplenic collection. 4. Colitis pattern involving the transverse colon, descending colon and a portion of the sigmoid. 5. Other nonacute appearing findings as above Please note that all CT scans at this facility use dose modulation, iterative reconstruction, and/or weight-based dosing when appropriate to reduce radiation dose to as low as reasonably achievable. Dictated by Bobby Chun MD @ 11/07/2022 7:28:07 PM (Electronically Signed)
[2022-11-07] MEDS: ACETAMINOPHEN 500 MG TABLET 1000 MG PO (17:55)
[2022-11-07] MEDS: ONDANSETRON 2 MG/ML inj 4 MG IVP (18:15)
[2022-11-07] MEDS: 0.9 % SODIUM CHLORIDE 1000 ml 1,000 ML IV (18:15)
[2022-11-07 18:21] LABS: Lactate* 1.2 mmol/L (0.5-1.9)
[2022-11-07 18:23] LABS: Basophils Absolute Auto 0.09 K/uL (0.00-0.30); Basophils Percent Auto 0.8 % (0.0-3.0); Eosinophils Percent Auto 12.7 % (0.0-7.0); Hematocrit 35.9 % (33.0-51.0); Hemoglobin* 11.7 gm/dL (12.0-16.0); Immature Granulocytes Abs Auto 0.09 K/uL (0.00-0.30); Immature Granulocytes Pct Auto 0.8 %; Lymphocytes Percent Auto 12.6 % (20-44); Mean Corpuscular HGB Conc 33 gm/dL (32-36); Mean Corpuscular Hemoglobin 31 pg (26-34); Mean Corpuscular Volume 94 fL (80-100); Monocytes Percent Auto 9.1 % (0.0-11.0); Neutrophils Absolute Auto 6.91 K/uL (1.7-7.0); Platelet Count* 295 K/uL (140-440); RDW Coefficient of Variation % 13.1 % (11.5-15.5); Red Blood Count 3.84 m/uL (4.00-5.20)
[2022-11-07] MEDS: fentaNYL 100 MCG/2 ML inj 25 MCG IVP (18:27)
[2022-11-07] MEDS: KETOROLAC 15 MG/ML inj IVP (18:28)
[2022-11-07 18:33] LABS: Slide Review Reflex No
[2022-11-07 18:35] LABS: Albumin* 3.6 g/dL (3.3-5.0)
[2022-11-07 18:36] LABS: Chloride* 96 mmol/L (96-114); Potassium* 3.8 mmol/L (3.6-5.1); Sodium* 133 mmol/L (135-149)
[2022-11-07 18:38] LABS: Anion Gap 12 mEq/L (7-15); Bilirubin Total* 0.6 mg/dL (0.1-1.5); Carbon Dioxide* 25 mmol/L (20-32); Creatinine* 0.7 mg/dL (0.5-1.5); Estimated Glomerular Filt Rate 87 ml/min
[2022-11-07 18:39] LABS: Alanine Aminotransferase* 37 U/L (4-35); Alkaline Phosphatase* 744 U/L (40-150); Aspartate Amino Transferase* 56 U/L (12-35); Blood Urea Nitrogen* 15 mg/dL (7-30); Glucose* 120 mg/dL (60-115); Lipase* 141 U/L (23-300)
--- NOTE | 2022-11-07 19:00 | ED.NURSE ---
Pt reports worsening abd pain. MD notified.
[2022-11-07] MEDS: HYDROmorphone 0.5 mg/0.5 ml inj IVP ×2 (19:12→23:23)
--- NOTE | 2022-11-07 19:14 | ED.NURSE ---
Pt O2 satting in low 80's% after dilaudid administration. Pt placed on 2L O2 NC. notified.
--- NOTE | 2022-11-07 19:15 | ED.NURSE ---
Pt O2 still satting mid 80's%. Titrated up to 3L NC.
--- NOTE | 2022-11-07 19:30 | ED.NURSE ---
O2 titrated down to 2L NC.
[2022-11-07 20:40] LABS: INR 1.02 (0.91-1.10)
[2022-11-07 20:41] LABS: Partial Thromboplastin Time* 31 Seconds (23-33)
[2022-11-07 21:22] LABS: PCR FLU A Negative PCR FLU A (Negative); PCR FLU B Negative PCR FLU B (Negative); PCR RSV Negative PCR RSV (Negative)
[2022-11-07 21:27] LABS: SARS PCR* Negative SARS-CoV-2 (Negative)
[2022-11-07] MEDS: HEPARIN 5,000 UNIT/0.5 ML INJ 4400 UNIT IVP (21:32)
[2022-11-07] MEDS: HEPARIN 25,000 UNIT/500 ML BAG 20 UNIT IV (21:33)
[2022-11-07] MEDS: 0.9 % SODIUM CHLORIDE 500 ML 500 ML 250 ML IV (21:33)
[2022-11-07 23:19] LABS: Appearance Urine Clear (Clear); Bilirubin Urine Negative (Negative); Blood Urine Negative (Negative); Color Urine Yellow (Yellow); Glucose Urine Negative (Negative); Ketones Urine 2+ (Negative); Leukocyte Esterase Urine Negative (Negative); Nitrite Urine Negative (Negative); Protein Urine 1+ (Negative); Urobilinogen Urine 0.2 (0.2-1.0); pH Urine 5.5 (5.0-8.5)
[2022-11-07 23:38] LABS: RBC Urine 0-2 (0-2); WBC Urine 0-2 (0-5)
[2022-11-08] VITALS (13 sets, daily range): BP systolic 151–168; BP diastolic 81–98; PULSE 97–108; RESP 16; O2SAT 95–99
[2022-11-08 03:20] LABS: Lactate* 0.6 mmol/L (0.5-1.9)
[2022-11-08 03:24] LABS: Basophils Absolute Auto 0.07 K/uL (0.00-0.30); Basophils Percent Auto 0.7 % (0.0-3.0); Eosinophils Absolute Auto 0.25 K/uL (0.00-0.50); Eosinophils Percent Auto 2.5 % (0.0-7.0); Hematocrit 34.4 % (33.0-51.0); Hemoglobin* 11.2 gm/dL (12.0-16.0); Immature Granulocytes Abs Auto 0.06 K/uL (0.00-0.30); Immature Granulocytes Pct Auto 0.6 %; Lymphocytes Percent Auto 15.3 % (20-44); Mean Corpuscular HGB Conc 33 gm/dL (32-36); Mean Corpuscular Hemoglobin 30 pg (26-34); Mean Corpuscular Volume 93 fL (80-100); Monocytes Percent Auto 7.6 % (0.0-11.0); Neutrophils Percent Auto 73.3 % (42.0-72.0); Platelet Count* 265 K/uL (140-440); RDW Coefficient of Variation % 13.2 % (11.5-15.5); Red Blood Count 3.69 m/uL (4.00-5.20); White Blood Count* 9.88 K/uL (4.50-11.00)
[2022-11-08 03:26] LABS: Slide Review Reflex No
[2022-11-08 04:00] LABS: Partial Thromboplastin Time* 146 Seconds (23-33)
--- NOTE | 2022-11-08 04:10 | ED.NURSE ---
PTT was 146 per protocol, hep gtt was stopped from 7221-4291. decresased hep gtt by 200units/hr, which will be 800units/hr or 16cc/hr on the pump. witnessed by second rn.
[2022-11-08] MEDS: HYDROmorphone 0.5 mg/0.5 ml inj IVP ×2 (04:19→07:22)
[2022-11-08] MEDS: ONDANSETRON 2 MG/ML inj 4 MG IVP (04:28)
--- NOTE | 2022-11-08 07:14 | ED.NURSE ---
report given to EMS. patient being transported to [facility]
--- NOTE | 2022-11-08 07:27 | ED.NURSE ---
taken to the bathroom to void via wc and then EMS is here to take the patient on transfer to [facility].
--- NOTE | 2022-11-08 07:48 | ED.NURSE ---
Given report to Daniel Nieves who will resume care of the patient at [facility].
== END 2022-11-08 07:33 | disposition other institution (70) ==
PROVIDERS: Emergency Medicine; Emergency Provider Family Medicine; PCP Internal Medicine
DX: K52.9 Noninfective gastroenteritis and colitis, unspecified (principal); R09.02 Hypoxemia; D73.5 Infarction of spleen; R21 Rash and other nonspecific skin eruption; R94.5 Abnormal results of liver function studies
CPT/HCPCS: 36415; 74177; 80053; 81001; 83605; 83690; 85025; 85610; 85730; 87040; 87631; 94761; 96361; 96374; 96375; 99285; A9270; J1170; J1644; J1885; J2405; J3010; J7030; J7120; Q9967

== ENCOUNTER 2022-11-08 07:08 | Outpatient (CLI) | payer MEDICARE, SELFPAY | END 2022-11-08 07:09 | disposition home or self-care (01) | LOC: AMB 11-10 09:56 | PROVIDERS: PCP Internal Medicine; Visit Provider Family Medicine | DX: D73.5 Infarction of spleen (principal) | CPT/HCPCS: A0425; A0434 ==